=== PATIENT | female | born 1950 | race Caucasian/White ===

== ENCOUNTER 2022-06-04 09:34 | Emergency (ER) | payer MEDICARE, SELFPAY ==
[2022-06-04 10:30] VITALS: BP 147/61; PULSE 76; RESP 20; TEMP 37.1; O2SAT 95; BMI 24.7
[2022-06-04 10:45] LABS: UTC Influenza A Antigen Positive (Negative)
[2022-06-04 10:46] LABS: UTC Influenza B Antigen Negative (Negative)
[2022-06-04 10:55] VITALS: BP 147/61; PULSE 76; RESP 20; TEMP 37.1; O2SAT 95
--- NOTE | 2022-06-04 11:02 | EXP.UTC ---
Discharge Plan Disposition Patient Disposition: Home, Self-Care Condition: Good Prescriptions Prescriptions: New oseltamivir [Tamiflu] 75 mg capsule 75 mg PO BID 5 Days Qty: 10 0RF No Action atorvastatin 10 mg tablet 10 mg PO HS Label Comments: TAKE 1 TABLET BY MOUTH EVERY DAY alendronate 70 mg tablet 70 mg PO DAILY Label Comments: PLEASE SEE ATTACHED FOR DETAILED DIRECTIONS metoprolol tartrate 50 mg tablet 50 mg PO DAILY furosemide 20 mg tablet 20 mg PO DAILY Label Comments: TAKE 1 TABLET BY MOUTH EVERY DAY Referrals Follow up/Referrals: Provider,Referral, MD [Primary Care Provider] - See instructions Activity Restrictions/Add. Instructions Additional Instructions/Restrictions: Start Tamiflu today if you are going to take it. Discussed risk and possible benefits. Lots of rest Increase Fluids water, Gatorade, powerade, pedialyte,if infant/toddler/child Alternate Tylenol and / or ibuprofen as discussed for fever, aches, chills Follow up IMMEDIATELY with your family doctor for new or worsening Symptoms OR no noticeable improvement over the next 48-72 hours, 911 for difficulty or breathing You or your child area contagious until no fever, aches, chills for 24 hours with medication for symptoms Help Prevent the spread of influenza: ?Wash your hands often. Use soap and water. Wash your hands after you use the bathroom, change a child's diapers, or sneeze. Wash your hands before you prepare or eat food. Use gel hand cleanser that has 60% alcohol, when soap and water are not available. Do not touch your eyes, nose, or mouth unless you have washed your hands first. Cover your mouth when you sneeze or cough. Cough into a tissue or the bend of your arm. If you use a tissue, throw it away immediately and wash your hands. Clean shared items with a germ-killing chrome cleaner. Clean table surfaces, doorknobs, and light switches. Do not share towels, silverware, and dishes with people who are sick. Wash bed sheets, towels, silverware, and dishes with soap and water. Wear a mask over your mouth and nose if you are sick. The face mask may help protect others from becoming infected with the flu. Wear the mask when in common areas of your home or if you seek care with a healthcare provider. Stay away from others if you are sick. Stay at home until 24 hours after your fever and symptoms are gone. Clinical Impressions Clinical Impression: Influenza A Stand Alone Forms Stand Alone Forms: Work/School Release Instructions Patient Instructions: DI for Influenza -- Adult Discharge ED Provider: Ida No [facility] [place] HPI General Stated complaint: Fever, chills, headache, bodyaches Mode of Arrival: Ambulatory Source of Information: Patient and Relative Limitations: No Limitations Time Seen by Provider: 06/04/22 11:02 Description of Symptoms (Recalled from Triage Doc. by RN): PATIENT C/O CHILLS, DRY COUGH, FEVER, AND BODY ACHES SINCE YESTERDAY HEENT Symptoms (Recalled from RN notes): No Resp Symptoms (Recalled from RN notes): Yes Skin Symptoms (Recalled from RN notes): No MS Symptoms (Recalled from RN notes): No Functional Status (Recalled from RN notes): WNL History of Present Illness Provider Complaint: Patient states that she started yesterday with flu like symptoms States that she has been having fever, chills, body aches and dry cough Related Data Home Medications Medication Instructions Recorded Confirmed alendronate 70 mg tablet 70 mg PO DAILY . 06/04/22 06/04/22 atorvastatin 10 mg tablet 10 mg PO HS Cholesterol 06/04/22 06/04/22 furosemide 20 mg tablet 20 mg PO DAILY Hypertension 06/04/22 06/04/22 metoprolol tartrate 50 mg tablet 50 mg PO DAILY Hypertension 06/04/22 06/04/22 Previous Rx's Medication Instructions Re
== END 2022-06-04 11:15 | disposition home or self-care (01) ==
PROVIDERS: Emergency Provider Nurse Practitioner
DX: J10.1 Influenza due to other identified influenza virus with other respiratory manifestations (principal)
CPT/HCPCS: 87804; 99212; 99213; G0463